=== PATIENT | male | born 1975 | race Caucasian/White ===

== ENCOUNTER 2021-08-31 00:12 | Emergency (ER) | payer MEDICAID ==
[~2021-08-31] VITALS: Ht 193 cm; Wt 145.4 kg
[2021-08-31 00:19] VITALS: BP 191/11
--- NOTE | 2021-08-31 00:28 | NUR ---
PT WENT OUTSIDE TO SMOKE AFTER TRIAGE
--- NOTE | 2021-08-31 00:45 | NUR ---
NOT IN LOBBY
--- NOTE | 2021-08-31 01:06 | NUR ---
NOT IN LOBBY
== END 2021-08-31 01:07 | disposition left against medical advice (07) ==
LOC: ER 00:13
DX: Z00.8 Encounter for other general examination (principal); Z53.21 Procedure and treatment not carried out due to patient leaving prior to being seen by health care provider